=== PATIENT | male | born 1965 | race Hispanic/Latino ===

== ENCOUNTER 2017-04-04 21:22 | Emergency (ER) | payer SELFPAY ==
[~2017-04-04 21:22] MED LIST: PANT40TA25 PO; PROP10TA72 PO
[2017-04-04] MEDS ORDERED: ACETAMINOPHEN 325 MG TAB ONE (21:40)
[2017-04-04] MEDS ORDERED: DEXAMETHASONE SOD PHOSPHATE 10MG/ML 1ML VIAL ONE (22:11)
== END 2017-04-04 22:50 | disposition home or self-care (01) ==
LOC: EDH 21:22
DX: J10.1 Influenza due to other identified influenza virus with other respiratory manifestations (principal); E11.9 Type 2 diabetes mellitus without complications; E78.5 Hyperlipidemia, unspecified; I10 Essential (primary) hypertension
CPT/HCPCS: 71046; 87804 ×2; 96372; 99285; J1100

== ENCOUNTER 2017-08-26 14:55 | Inpatient (IN) | payer SELFPAY ==
[~2017-08-26] VITALS: Ht 172.7 cm; Wt 86.2 kg
[2017-08-26 15:18] LABS: APPEARANCE,URINE Clear (CLEAR); BILIRUBIN,URINE Negative (NEGATIVE); COLOR,URINE Yellow (YELLOW); GLUCOSE, URINE (UA) >=1000 mg/dL (NEGATIVE); KETONES,URINE 40 mg/dL (NEGATIVE); LEUKOCYTE ESTERASE ,URINE Small (NEGATIVE); NITRATE,URINE Negative (NEGATIVE); OCCULT BLOOD,URINE Negative (NEGATIVE); PH,URINE 7.5 (5.0-8.0); PROTEIN,URINE 300 (NEGATIVE)
[2017-08-26 15:22] LABS: BASOPHILS % (AUTO) 1.3 % (0.0-5.0); HEMATOCRIT 21.4 % (42-54); LYMPHOCYTES % (AUTO) 23.5 % (21.0-51.0); MEAN CORPUSCULAR HGB CONC 28.9 g/dL (32.0-36.0); MEAN CORPUSCULAR VOLUME 72.8 fL (79-99); MONOCYTES % (AUTO) 11.3 % (3.0-13.0); NEUTROPHILS % (AUTO) 62.9 % (40.0-77.0); NUCLEATED RED BLOOD CELLS 0.2 % (0.0-0.19); PLATELET COUNT (AUTO) 41 K/uL (130-400); RED BLOOD CELL COUNT(AUTO) 2.94 MIL/uL (4.50-6.20); WHITE BLOOD COUNT (AUTO) 2.6 K/uL (4.8-10.8)
[2017-08-26 15:28] LABS: BACTERIA,URINE Rare /HPF (None Seen); RBC,URINE None Seen /HPF (0-1); TRANSITIONAL EPI CELLS,URINE Few /HPF (None Seen)
[2017-08-26] MEDS ORDERED: ONDANSETRON HCL 4 MG/2 ML VIAL ONE ×3 (15:34→20:46)
[2017-08-26] MEDS ORDERED: MORPHINE SULFATE 4 MG/1ML SYG ONE ×2 (15:35→16:48)
[2017-08-26 15:36] LABS: CREATININE 0.6 mg/dL (0.5-1.5); POTASSIUM 3.2 mmol/L (3.5-5.1)
[2017-08-26 15:38] LABS: ALBUMIN 3.4 g/dL (3.5-5.0); TOTAL PROTEIN, SERUM 8.7 g/dL (6.0-8.3)
[2017-08-26 15:39] LABS: INR 1.13 (0.85-1.15); PARTIAL THROMBOPLASTIN TIME 23.8 SEC (26.3-35.5); PROTHROMBIN TIME 11.8 SEC (9.6-11.6)
[2017-08-26 15:53] LABS: BASOPHILS % (MANUAL) 4 % (0-2); LYMPHOCYTES % (MANUAL) 24 % (22-44); MONOCYTES % (MANUAL) 4 % (2-9); SEGMENTED NEUTROPHILS % 68 % (40-70)
[2017-08-26 15:54] LABS: PLATELET MORPHOLOGY COMMENT MARKED DECREASED
[2017-08-26] MEDS ORDERED: CEFTRIAXONE SODIUM 1 GM ONE (18:53)
[2017-08-26] MEDS ORDERED: SODIUM CHLORIDE 0.9% 50 ML IV ONE (18:53)
[2017-08-26] MEDS: SODIUM CHLORIDE 0.9% 1000ML 1,000 ML IV SCH (19:04)
[2017-08-26] MEDS ORDERED: HYDRALAZINE HCL 20 MG/ML VIAL IV PRN (19:15)
[2017-08-26] MEDS ORDERED: CEFTRIAXONE 1GM/D5W 50ML 50 ML IV SCH (19:15)
[2017-08-26] MEDS ORDERED: ACETAMINOPHEN 325 MG TAB PO PRN (19:15)
[2017-08-26] MEDS ORDERED: MORPHINE SULFATE 2 MG/ML 1ML SYG IV PRN (19:15)
[2017-08-26] MEDS ORDERED: POTASSIUM CHLORIDE 20 MEQ ERTAB PO PRN ×2 (19:30)
[2017-08-26] MEDS ORDERED: POTASSIUM CHLORIDE 10% ELIXIR 20 MEQ/15 ML UDCUP PO PRN ×2 (19:30)
[2017-08-26] MEDS ORDERED: DEXTROSE 50%-WATER 50 ML DISP.SYRIN IV PRN (19:30)
[2017-08-26] MEDS ORDERED: GLUCAGON 1MG KIT 1 MG ML IM PRN (19:30)
[2017-08-26] MEDS ORDERED: LIDOCAINE HCL-MPF 1% 2ML VIAL IVP PRN ×2 (19:30)
[2017-08-26] MEDS ORDERED: POTASSIUM CHLORIDE 20MEQ/100ML 100 ML IV PRN ×2 (19:30)
[2017-08-26] MEDS ORDERED: ONDANSETRON HCL MDV 20ML 2 MG/ML VIAL IVP PRN (20:15)
[2017-08-26] MEDS ORDERED: MORPHINE SULFATE 8 MG/ML VIAL ONE (20:47)
[2017-08-26] MEDS: FAMOTIDINE/PF 20 MG/2 ML VIAL IV SCH (21:00)
[2017-08-26] MEDS: INSULIN HUMULIN R 100 UNIT/ML 3ML SQ SCH (21:00)
[2017-08-26] MEDS ORDERED: SODIUM CHLORIDE 0.9% 1000ML 1,000 ML IV ONE (21:24)
[2017-08-27] MEDS ORDERED: POTASSIUM CHLORIDE 20 MEQ ERTAB PO ONE (04:40)
[2017-08-27] MEDS ORDERED: MORPHINE SULFATE 4 MG/1ML SYG ONE ×2 (05:00→07:53)
[2017-08-27 06:36] LABS: BASOPHILS % (AUTO) 1.2 % (0.0-5.0); EOSINOPHILS % (AUTO) 2.2 % (0.0-8.0); HEMATOCRIT 21.2 % (42-54); LYMPHOCYTES % (AUTO) 23.6 % (21.0-51.0); MEAN CORPUSCULAR HEMOGLOBIN 21.9 pg (27.0-33.0); MEAN CORPUSCULAR HGB CONC 29.9 g/dL (32.0-36.0); MEAN CORPUSCULAR VOLUME 73.5 fL (79-99); MONOCYTES % (AUTO) 13.9 % (3.0-13.0); NEUTROPHILS % (AUTO) 59.1 % (40.0-77.0); NUCLEATED RED BLOOD CELLS 0.2 % (0.0-0.19); PLATELET COUNT (AUTO) 29 K/uL (130-400); RED BLOOD CELL COUNT(AUTO) 2.88 MIL/uL (4.50-6.20); RED CELL DISTRIBUTION WIDTH 18.9 % (11.0-15.5); WHITE BLOOD COUNT (AUTO) 2.7 K/uL (4.8-10.8)
[2017-08-27 07:04] LABS: BILIRUBIN,TOTAL 1.5 mg/dL (0.2-1.0); POTASSIUM 3.9 mmol/L (3.5-5.1); TOTAL PROTEIN, SERUM 7.7 g/dL (6.0-8.3)
[2017-08-27] MEDS: INSULIN HUMULIN R 100 UNIT/ML 3ML SQ SCH ×4 (07:30→21:00)
[2017-08-27] MEDS ORDERED: ONDANSETRON HCL 4 MG/2 ML VIAL ONE (07:52)
[2017-08-27] MEDS: FAMOTIDINE/PF 20 MG/2 ML VIAL IV SCH ×2 (09:00→21:41)
[2017-08-27 09:03] LABS: CREATININE 0.5 mg/dL (0.5-1.5)
[2017-08-27 10:39] VITALS: BP 162/70
[2017-08-27] MEDS: MORPHINE SULFATE 4 MG/1ML SYG IV PRN ×4 (10:58→22:56)
[2017-08-27] MEDS ORDERED: SODIUM CHLORIDE 0.9% 250 ML IV ONE (13:29)
[2017-08-27] MEDS: SODIUM CHLORIDE 0.9% 1000ML 1,000 ML IV SCH (13:30)
[2017-08-27 16:32] VITALS: BP 133/80
[2017-08-27] MEDS: CEFTRIAXONE SODIUM 1 GM IVP SCH (17:24)
[2017-08-27 20:08] VITALS: BP 136/64
[2017-08-28] VITALS (16 sets, daily range): BP systolic 99–149; BP diastolic 59–85
[2017-08-28] MEDS: SODIUM CHLORIDE 0.9% 1000ML 1,000 ML IV SCH (01:24)
[2017-08-28] MEDS: MORPHINE SULFATE 4 MG/1ML SYG IV PRN ×4 (03:19→18:07)
[2017-08-28 04:26] LABS: MEAN CORPUSCULAR HEMOGLOBIN 23.2 pg (27.0-33.0); MEAN CORPUSCULAR HGB CONC 31.2 g/dL (32.0-36.0); MEAN CORPUSCULAR VOLUME 74.5 fL (79-99); NUCLEATED RED BLOOD CELLS 0.1 % (0.0-0.19); PLATELET COUNT (AUTO) 36 K/uL (130-400); RED BLOOD CELL COUNT(AUTO) 3.63 MIL/uL (4.50-6.20); RED CELL DISTRIBUTION WIDTH 19.3 % (11.0-15.5); WHITE BLOOD COUNT (AUTO) 3.6 K/uL (4.8-10.8)
[2017-08-28] MEDS: INSULIN HUMULIN R 100 UNIT/ML 3ML SQ SCH ×3 (06:18→16:30)
[2017-08-28] MEDS ORDERED: PROPOFOL 10 MG/ML 20ML VIAL IV ONE (08:01)
[2017-08-28] MEDS ORDERED: GLYCOPYRROLATE 0.2 MG/ML 5 ML VIAL ONE (08:01)
[2017-08-28] MEDS: FAMOTIDINE/PF 20 MG/2 ML VIAL IV SCH (09:17)
[2017-08-28] MEDS: HYDROMORPHONE 1 MG/1 ML AMP IVP PRN ×2 (10:12→15:53)
[2017-08-28] MEDS: CEFTRIAXONE SODIUM 1 GM IVP SCH (18:06)
== END 2017-08-28 19:35 | disposition home or self-care (01) | DRG 432 ==
LOC: EDH 14:55 → EDHIP 14:56 → 4BH 08-27 10:13
PROVIDERS: ADMIT Internal Medicine Nephrology; ATTEND Internal Medicine Nephrology
PROC: 30233N1 Transfusion of Nonautologous Red Blood Cells into Peripheral Vein, Percutaneous Approach (ICD-10-PCS; 2017-08-26)
PROC: 30233R1 Transfusion of Nonautologous Platelets into Peripheral Vein, Percutaneous Approach (ICD-10-PCS; principal; 2017-08-28)
PROC: 0DJ08ZZ Inspection of Upper Intestinal Tract, Via Natural or Artificial Opening Endoscopic (ICD-10-PCS; 2017-08-28)
DX: K70.31 Alcoholic cirrhosis of liver with ascites (principal); I85.11 Secondary esophageal varices with bleeding; D69.6 Thrombocytopenia, unspecified; K76.6 Portal hypertension; E11.9 Type 2 diabetes mellitus without complications; E78.5 Hyperlipidemia, unspecified; I10 Essential (primary) hypertension; D50.9 Iron deficiency anemia, unspecified; N39.0 Urinary tract infection, site not specified; K29.70 Gastritis, unspecified, without bleeding; K42.9 Umbilical hernia without obstruction or gangrene; Z87.11 Personal history of peptic ulcer disease; K31.89 Other diseases of stomach and duodenum
CPT/HCPCS: 36415; 74176; 76705; 80053; 81001; 82150; 82270; 82948; 83690; 85025; 85027; 85610; 85730; 86850; 86900; 86901; 86922; 87088; 87106; 87186; 93005; J0696; J1170; J1815; J2270; J2405; J2704; J3490; J7030; P9016; P9034

== ENCOUNTER 2018-03-31 21:43 | Inpatient (IN) | payer SELFPAY ==
[~2018-03-31] VITALS: Ht 170.2 cm; Wt 103.5 kg
[2018-03-31 22:32] LABS: BASOPHILS % (AUTO) 0.4 % (0.0-5.0); EOSINOPHILS % (AUTO) 1.7 % (0.0-8.0); HEMATOCRIT 26.5 % (42-54); LYMPHOCYTES % (AUTO) 9.9 % (21.0-51.0); MEAN CORPUSCULAR HEMOGLOBIN 29.4 pg (27.0-33.0); MEAN CORPUSCULAR HGB CONC 32.3 g/dL (32.0-36.0); MEAN CORPUSCULAR VOLUME 91.1 fL (79-99); MONOCYTES % (AUTO) 9.6 % (3.0-13.0); NEUTROPHILS % (AUTO) 78.4 % (40.0-77.0); PLATELET COUNT (AUTO) 106 K/uL (130-400); RED CELL DISTRIBUTION WIDTH 22.5 % (11.0-15.5); WHITE BLOOD COUNT (AUTO) 13.9 K/uL (4.8-10.8)
[2018-03-31 22:45] LABS: INR 1.97 (0.85-1.15); PARTIAL THROMBOPLASTIN TIME 47.4 SEC (26.3-35.5); PROTHROMBIN TIME 20.4 SEC (9.6-11.6)
[2018-03-31 22:47] LABS: CREATININE 3.3 mg/dL (0.5-1.5); POTASSIUM 3.6 mmol/L (3.5-5.1)
[2018-03-31 22:53] LABS: ALBUMIN 1.4 g/dL (3.5-5.0); BILIRUBIN,TOTAL 10.6 mg/dL (0.2-1.0); MAGNESIUM 2.1 mg/dL (1.80-2.40); TOTAL PROTEIN, SERUM 8.1 g/dL (6.0-8.3)
[2018-03-31 23:22] LABS: APPEARANCE,URINE Turbid (CLEAR); BILIRUBIN,URINE Large (NEGATIVE); GLUCOSE, URINE (UA) TRACE mg/dL (NEGATIVE); KETONES,URINE Trace mg/dL (NEGATIVE); LEUKOCYTE ESTERASE ,URINE Large (NEGATIVE); NITRATE,URINE Negative (NEGATIVE); OCCULT BLOOD,URINE Large (NEGATIVE); PROTEIN,URINE POS 1+ (NEGATIVE)
[2018-03-31 23:26] LABS: COLOR,URINE Dark Yellow (YELLOW)
[2018-03-31 23:30] LABS: AMPHET/METH SCREEN,URINE NEGATIVE (NEGATIVE); BARBITURATE SCREEN, URINE NEGATIVE (NEGATIVE); BENZODIAZEPINES SCREEN,URINE POSITIVE (NEGATIVE); CANNABINOID SCREEN,URINE POSITIVE (NEGATIVE); COCAINE SCREEN,URINE NEGATIVE (NEGATIVE); OPIATE SCREEN,URINE NEGATIVE (NEGATIVE); PHENCYCLIDINE SCREEN,URINE NEGATIVE (NEGATIVE)
[2018-03-31 23:31] LABS: BACTERIA,URINE Few /HPF (None Seen); MUCUS,URINE Rare LPF (None Seen); RBC,URINE 26-50 /HPF (0-1); SQUAMOUS EPITHELIAL CELL,UR Moderate /HPF (0-2); WBC,URINE 26-50 /HPF (0-1); YEAST,URINE BUDDING Rare /HPF (None Seen)
[2018-03-31 23:32] LABS: AMORPHOUS SEDIMENT,UR Moderate /LPF (None Seen)
[2018-03-31] MEDS ORDERED: ACETAMINOPHEN-CODEINE 300/30MG TAB ONE (23:36)
[2018-04-01] MEDS: LEVOFLOXACIN 500 MG/D5W 100 ML 100 ML IV SCH (01:15)
[2018-04-01] MEDS ORDERED: SODIUM CHLORIDE 0.9% 1000ML 1,000 ML IV SCH (01:15)
[2018-04-01 01:54] LABS: CREATININE,URINE RANDOM 240 mg/dL (30-135); SODIUM,URINE RANDOM 26 mmol/l (40-220)
[2018-04-01] MEDS ORDERED: LEVOFLOXACIN 500 MG/D5W 100 ML 100 ML ONE (02:47)
[2018-04-01] MEDS ORDERED: FUROSEMIDE 10 MG/ML 2ML VIAL ONE (02:47)
[2018-04-01] MEDS ORDERED: FUROSEMIDE 10 MG/ML 2ML VIAL IVP SCH (03:45)
[2018-04-01] MEDS ORDERED: ONDANSETRON HCL 4 MG/2 ML VIAL IV PRN (04:00)
[2018-04-01] MEDS ORDERED: MORPHINE SULFATE 2 MG/ML 1ML SYG IV PRN (04:00)
[2018-04-01] MEDS ORDERED: DEXTROSE 50%-WATER 50 ML DISP.SYRIN IV PRN (04:00)
[2018-04-01] MEDS ORDERED: GLUCAGON 1MG KIT 1 MG ML IM PRN (04:00)
[2018-04-01 05:28] LABS: POTASSIUM 3.6 mmol/L (3.5-5.1)
[2018-04-01 05:56] LABS: BASOPHILS % (AUTO) 0.6 % (0.0-5.0); EOSINOPHILS % (AUTO) 2.3 % (0.0-8.0); LYMPHOCYTES % (AUTO) 10.8 % (21.0-51.0); MEAN CORPUSCULAR HEMOGLOBIN 29.8 pg (27.0-33.0); MEAN CORPUSCULAR HGB CONC 32.5 g/dL (32.0-36.0); MEAN CORPUSCULAR VOLUME 91.5 fL (79-99); MONOCYTES % (AUTO) 11.2 % (3.0-13.0); NEUTROPHILS % (AUTO) 75.1 % (40.0-77.0); RED BLOOD CELL COUNT(AUTO) 2.48 MIL/uL (4.50-6.20); RED CELL DISTRIBUTION WIDTH 22.2 % (11.0-15.5); WHITE BLOOD COUNT (AUTO) 11.7 K/uL (4.8-10.8)
[2018-04-01] MEDS: INSULIN HUMULIN R 100 UNIT/ML 3ML SQ SCH ×5 (06:00→17:19)
[2018-04-01 06:02] LABS: HEMATOCRIT 22.7 % (42-54)
[2018-04-01 06:08] LABS: ALBUMIN 1.1 g/dL (3.5-5.0); BILIRUBIN,TOTAL 9.2 mg/dL (0.2-1.0); CREATININE 3.4 mg/dL (0.5-1.5); MAGNESIUM 2.1 mg/dL (1.80-2.40); TOTAL PROTEIN, SERUM 6.9 g/dL (6.0-8.3)
[2018-04-01 06:10] LABS: INR 2.14 (0.85-1.15); PARTIAL THROMBOPLASTIN TIME 54.3 SEC (26.3-35.5); PROTHROMBIN TIME 22.1 SEC (9.6-11.6)
[2018-04-01 06:11] LABS: HEMOGLOBIN A1C 8.3 % (4.0-6.0)
[2018-04-01 06:22] LABS: PLATELET COUNT (AUTO) 62 K/uL (130-400)
[2018-04-01] MEDS ORDERED: HYDR-4064 PO (07:53)
[2018-04-01 07:57] VITALS: BP 115/63
[2018-04-01] MEDS ORDERED: ACETAMINOPHEN EXTRA STRENGTH 500 MG TABLET PO PRN (08:00)
[2018-04-01] MEDS ORDERED: FAMOTIDINE/PF 20 MG/2 ML VIAL IV SCH (09:00)
[2018-04-01] MEDS ORDERED: M.V.I. IV [ADULT] 10 ML, FOLIC ACID 1 MG, THIAMINE HCL 100 MG in SODIUM CHLORIDE 0.9% 1... IV SCH (09:00)
[2018-04-01] MEDS: ONDANSETRON HCL 4 MG/2 ML VIAL IV PRN (09:35)
[2018-04-01] MEDS: MORPHINE SULFATE 4 MG/1ML SYG IV PRN ×4 (09:35→21:40)
[2018-04-01] MEDS ORDERED: SODIUM CHLORIDE 0.9% 500ML 500 ML IV ONE (09:47)
[2018-04-01 11:33] VITALS: BP 123/72
[2018-04-01] MEDS ORDERED: SPIR25TA6 PO (11:50)
[2018-04-01] MEDS ORDERED: METF-446 PO (11:50)
[2018-04-01] MEDS ORDERED: FURO40TA5 PO (11:50)
[2018-04-01] MEDS ORDERED: PANT40TA25 PO (11:50)
[2018-04-01] MEDS ORDERED: FURO20TA6 PO (11:50)
[2018-04-01] MEDS ORDERED: PRAV20TA4 PO (11:52)
[2018-04-01] MEDS ORDERED: AMOX1TAB16 PO (11:52)
[2018-04-01] MEDS: PANTOPRAZOLE SODIUM 40 MG TABLET.DR PO SCH (11:58)
[2018-04-01] MEDS ORDERED: EPOETIN ALFA 10,000 UNIT/ML VIAL SQ SCH (13:00)
[2018-04-01] MEDS ORDERED: COMPOUND IV MISC 1 EACH IVSOLN MISC PRN (13:15)
[2018-04-01 16:04] VITALS: BP 107/57
[2018-04-01] MEDS: PHYTONADIONE 10 MG/1 ML AMP IV SCH (17:09)
[2018-04-01 18:15] LABS: HEMATOCRIT 25.9 % (42-54)
[2018-04-01 19:00] VITALS: BP 107/54
[2018-04-01] MEDS: ZOSYN 3.375GM+NS 50ML 50 ML IV SCH (20:30)
[2018-04-01] MEDS: SODIUM BICARBONATE 650 MG TAB PO SCH (20:33)
[2018-04-01 23:00] VITALS: BP 121/69
[2018-04-02] VITALS (15 sets, daily range): BP systolic 105–129; BP diastolic 47–80
[2018-04-02 00:54] LABS: HEMATOCRIT 25.6 % (42-54)
[2018-04-02] MEDS: LEVOFLOXACIN 500 MG/D5W 100 ML 100 ML IV SCH (01:43)
[2018-04-02] MEDS: MORPHINE SULFATE 4 MG/1ML SYG IV PRN ×4 (01:43→21:06)
[2018-04-02 04:30] LABS: BASOPHILS % (AUTO) 0.5 % (0.0-5.0); EOSINOPHILS % (AUTO) 2.1 % (0.0-8.0); HEMATOCRIT 24.7 % (42-54); LYMPHOCYTES % (AUTO) 6.5 % (21.0-51.0); MEAN CORPUSCULAR HEMOGLOBIN 29.8 pg (27.0-33.0); MEAN CORPUSCULAR HGB CONC 33.1 g/dL (32.0-36.0); NEUTROPHILS % (AUTO) 79.9 % (40.0-77.0); PLATELET COUNT (AUTO) 55 K/uL (130-400); RED BLOOD CELL COUNT(AUTO) 2.75 MIL/uL (4.50-6.20); RED CELL DISTRIBUTION WIDTH 21.7 % (11.0-15.5); WHITE BLOOD COUNT (AUTO) 11.1 K/uL (4.8-10.8)
[2018-04-02 04:37] LABS: POTASSIUM 3.7 mmol/L (3.5-5.1)
[2018-04-02] MEDS: INSULIN HUMULIN R 100 UNIT/ML 3ML SQ SCH ×4 (06:00→16:56)
[2018-04-02 07:05] LABS: HEMATOCRIT 36.3 % (42-54)
[2018-04-02] MEDS: ZOSYN 3.375GM+NS 50ML 50 ML IV SCH ×2 (10:10→21:07)
[2018-04-02] MEDS: PHYTONADIONE 10 MG/1 ML AMP IV SCH (10:10)
[2018-04-02] MEDS ORDERED: SODIUM CHLORIDE 0.9% 250 ML IV ONE (12:20)
[2018-04-02 12:39] LABS: HEMATOCRIT 24.2 % (42-54)
[2018-04-02] MEDS ORDERED: PROPOFOL 10 MG/ML 20ML VIAL IV ONE (14:03)
[2018-04-02] MEDS: ONDANSETRON HCL 4 MG/2 ML VIAL IV PRN (14:45)
[2018-04-02] MEDS: IRON SUCROSE COMPLEX 100 MG in SODIUM CHLORIDE 0.9% 50 ML IV SCH (14:49)
[2018-04-02] MEDS: SODIUM BICARBONATE 650 MG TAB PO SCH ×2 (15:43→21:06)
[2018-04-02] MEDS: PANTOPRAZOLE SODIUM 40 MG TABLET.DR PO SCH (15:43)
[2018-04-02 18:08] LABS: HEMATOCRIT 23.5 % (42-54)
[2018-04-02] MEDS ORDERED: MORPHINE SULFATE 4 MG/1ML SYG IV PRN (20:44)
[2018-04-03] MEDS: LEVOFLOXACIN 500 MG/D5W 100 ML 100 ML IV SCH (02:02)
[2018-04-03 03:00] VITALS: BP 129/73
[2018-04-03 04:15] LABS: HEMATOCRIT 23.4 % (42-54); MEAN CORPUSCULAR HEMOGLOBIN 28.7 pg (27.0-33.0); MEAN CORPUSCULAR HGB CONC 31.8 g/dL (32.0-36.0); MEAN CORPUSCULAR VOLUME 90.1 fL (79-99); PLATELET COUNT (AUTO) 44 K/uL (130-400); RED CELL DISTRIBUTION WIDTH 21.7 % (11.0-15.5); WHITE BLOOD COUNT (AUTO) 11.8 K/uL (4.8-10.8)
[2018-04-03 04:18] LABS: CREATININE 2.9 mg/dL (0.5-1.5); POTASSIUM 3.9 mmol/L (3.5-5.1)
[2018-04-03] MEDS: INSULIN HUMULIN R 100 UNIT/ML 3ML SQ SCH ×5 (06:00→21:00)
[2018-04-03 07:15] VITALS: BP 123/67
[2018-04-03] MEDS: PHYTONADIONE 10 MG/1 ML AMP IV SCH (07:47)
[2018-04-03] MEDS: SODIUM BICARBONATE 650 MG TAB PO SCH ×2 (07:57→19:59)
[2018-04-03] MEDS: PANTOPRAZOLE SODIUM 40 MG TABLET.DR PO SCH (07:58)
[2018-04-03] MEDS: ZOSYN 3.375GM+NS 50ML 50 ML IV SCH ×2 (07:58→19:59)
[2018-04-03] MEDS: MORPHINE SULFATE 4 MG/1ML SYG IV PRN ×4 (08:03→20:33)
[2018-04-03] MEDS: IRON SUCROSE COMPLEX 100 MG in SODIUM CHLORIDE 0.9% 50 ML IV SCH (09:00)
[2018-04-03 11:08] VITALS: BP 126/65
[2018-04-03 15:56] VITALS: BP 134/73
[2018-04-03 19:46] VITALS: BP 133/70
[2018-04-03 23:39] VITALS: BP 142/70
[2018-04-04] MEDS: LEVOFLOXACIN 500 MG/D5W 100 ML 100 ML IV SCH (00:32)
[2018-04-04] MEDS: MORPHINE SULFATE 4 MG/1ML SYG IV PRN ×4 (00:32→13:52)
[2018-04-04 03:51] VITALS: BP 123/62
[2018-04-04 04:09] LABS: BASOPHILS % (AUTO) 0.4 % (0.0-5.0); EOSINOPHILS % (AUTO) 0.8 % (0.0-8.0); HEMATOCRIT 22.8 % (42-54); LYMPHOCYTES % (AUTO) 6.4 % (21.0-51.0); MEAN CORPUSCULAR HEMOGLOBIN 30.3 pg (27.0-33.0); MEAN CORPUSCULAR HGB CONC 33.5 g/dL (32.0-36.0); MEAN CORPUSCULAR VOLUME 90.3 fL (79-99); MONOCYTES % (AUTO) 8.8 % (3.0-13.0); NEUTROPHILS % (AUTO) 83.6 % (40.0-77.0); NUCLEATED RED BLOOD CELLS 0.1 % (0.0-0.19); PLATELET COUNT (AUTO) 50 K/uL (130-400); RED BLOOD CELL COUNT(AUTO) 2.53 MIL/uL (4.50-6.20); RED CELL DISTRIBUTION WIDTH 21.9 % (11.0-15.5); WHITE BLOOD COUNT (AUTO) 16.6 K/uL (4.8-10.8)
[2018-04-04 04:27] LABS: CREATININE 2.7 mg/dL (0.5-1.5); POTASSIUM 3.8 mmol/L (3.5-5.1)
[2018-04-04] MEDS: INSULIN HUMULIN R 100 UNIT/ML 3ML SQ SCH ×4 (06:10→20:44)
[2018-04-04] MEDS: PHYTONADIONE 10 MG/1 ML AMP IV SCH (07:01)
[2018-04-04] MEDS: PANTOPRAZOLE SODIUM 40 MG TABLET.DR PO SCH (07:13)
[2018-04-04] MEDS: SODIUM BICARBONATE 650 MG TAB PO SCH ×2 (07:13→20:28)
[2018-04-04] MEDS: IRON SUCROSE COMPLEX 100 MG in SODIUM CHLORIDE 0.9% 50 ML IV SCH (07:14)
[2018-04-04] MEDS: ZOSYN 3.375GM+NS 50ML 50 ML IV SCH ×2 (07:14→20:28)
[2018-04-04 07:42] VITALS: BP 131/66
[2018-04-04] MEDS ORDERED: EPOETIN ALFA 10,000 UNIT/ML VIAL SQ SCH (11:15)
[2018-04-04 12:00] VITALS: BP 119/68
[2018-04-04] MEDS: ALBUMIN (HUMAN) 25% 50 ML IV SCH ×2 (13:15→22:16)
[2018-04-04 16:00] VITALS: BP 140/81
[2018-04-04 19:33] VITALS: BP 135/78
[2018-04-04] MEDS ORDERED: SODIUM CHLORIDE 0.9% 50 ML IV ONE (19:58)
[2018-04-04] MEDS: DOXYCYCLINE HYCLATE 100 MG TABLET PO SCH (20:28)
[2018-04-04 23:40] VITALS: BP 133/70
[2018-04-05 03:58] VITALS: BP 128/56
[2018-04-05 04:16] LABS: HEMATOCRIT 22.6 % (42-54); MEAN CORPUSCULAR VOLUME 90.6 fL (79-99); NUCLEATED RED BLOOD CELLS 0.1 % (0.0-0.19); PLATELET COUNT (AUTO) 39 K/uL (130-400); RED CELL DISTRIBUTION WIDTH 21.9 % (11.0-15.5); WHITE BLOOD COUNT (AUTO) 17.9 K/uL (4.8-10.8)
[2018-04-05 04:50] LABS: ALBUMIN 1.6 g/dL (3.5-5.0); BILIRUBIN,TOTAL 12.2 mg/dL (0.2-1.0); POTASSIUM 3.8 mmol/L (3.5-5.1); TOTAL PROTEIN, SERUM 7.9 g/dL (6.0-8.3)
[2018-04-05] MEDS: ALBUMIN (HUMAN) 25% 50 ML IV SCH ×3 (04:52→21:09)
[2018-04-05] MEDS: MORPHINE SULFATE 4 MG/1ML SYG IV PRN ×5 (04:56→21:10)
[2018-04-05] MEDS: INSULIN HUMULIN R 100 UNIT/ML 3ML SQ SCH ×4 (05:25→20:24)
[2018-04-05 07:00] VITALS: BP 136/72
[2018-04-05] MEDS: PHYTONADIONE 10 MG/1 ML AMP IV SCH (09:15)
[2018-04-05] MEDS: THIAMINE HCL 100 MG TABLET PO SCH (09:25)
[2018-04-05] MEDS: SODIUM BICARBONATE 650 MG TAB PO SCH ×2 (09:25→20:23)
[2018-04-05] MEDS: MULTIVITAMIN TABLET PO SCH (09:25)
[2018-04-05] MEDS: SPIRONOLACTONE 25 MG TAB PO SCH (09:25)
[2018-04-05] MEDS: DOXYCYCLINE HYCLATE 100 MG TABLET PO SCH ×2 (09:25→20:23)
[2018-04-05] MEDS: PANTOPRAZOLE SODIUM 40 MG TABLET.DR PO SCH (09:25)
[2018-04-05] MEDS: FOLIC ACID 1 MG TABLET PO SCH (09:25)
[2018-04-05] MEDS: ZOSYN 3.375GM+NS 50ML 50 ML IV SCH (09:26)
[2018-04-05] MEDS: IRON SUCROSE COMPLEX 100 MG in SODIUM CHLORIDE 0.9% 50 ML IV SCH (09:30)
[2018-04-05] MEDS: FUROSEMIDE 10 MG/ML 4ML VIAL IV SCH (09:30)
[2018-04-05 11:00] VITALS: BP 134/73
[2018-04-05] MEDS ORDERED: MEROPENEM 500 MG VIAL IVP SCH (13:15)
[2018-04-05] MEDS ORDERED: RENAL DOSE IV SCH (13:15)
[2018-04-05] MEDS: EPOETIN ALFA 10,000 UNIT/ML VIAL SQ SCH (15:04)
[2018-04-05 16:00] VITALS: BP 140/69
[2018-04-05 19:50] VITALS: BP 133/76
[2018-04-05] MEDS: MEROPENEM 500 MG VIAL IVP SCH (20:23)
[2018-04-05 23:29] VITALS: BP 130/69
[2018-04-06] MEDS: HYDROCODONE/ACETAMINOPHEN 5/325 MG TAB PO PRN ×4 (01:44→21:06)
[2018-04-06 04:00] VITALS: BP 120/71
[2018-04-06 04:12] LABS: MEAN CORPUSCULAR HEMOGLOBIN 30.6 pg (27.0-33.0); MEAN CORPUSCULAR HGB CONC 33.4 g/dL (32.0-36.0); MEAN CORPUSCULAR VOLUME 91.6 fL (79-99); PLATELET COUNT (AUTO) 39 K/uL (130-400); RED CELL DISTRIBUTION WIDTH 21.8 % (11.0-15.5)
[2018-04-06 04:17] LABS: POTASSIUM 3.7 mmol/L (3.5-5.1)
[2018-04-06 04:20] LABS: ALBUMIN 1.6 g/dL (3.5-5.0); PHOSPHORUS 4.7 mg/dL (2.5-4.9)
[2018-04-06 04:21] LABS: PARTIAL THROMBOPLASTIN TIME 72.1 SEC (26.3-35.5)
[2018-04-06 04:36] LABS: PROTHROMBIN TIME > 63.0 SEC (9.6-11.6)
[2018-04-06 04:37] LABS: INR > 7.00 (0.85-1.15)
[2018-04-06] MEDS ORDERED: PHYTONADIONE 10 MG/1 ML AMP IV SCH (05:00)
[2018-04-06] MEDS: ALBUMIN (HUMAN) 25% 50 ML IV SCH ×3 (05:18→19:13)
[2018-04-06] MEDS: MORPHINE SULFATE 4 MG/1ML SYG IV PRN ×4 (05:19→23:55)
[2018-04-06] MEDS: INSULIN HUMULIN R 100 UNIT/ML 3ML SQ SCH ×4 (06:26→20:43)
[2018-04-06] MEDS ORDERED: PHYTONADIONE 10 MG in SODIUM CHLORIDE 0.9% 50 ML SQ SCH (06:45)
[2018-04-06 07:00] VITALS: BP 123/77
[2018-04-06] MEDS: SODIUM BICARBONATE 650 MG TAB PO SCH ×2 (08:15→21:04)
[2018-04-06] MEDS: SPIRONOLACTONE 25 MG TAB PO SCH (08:16)
[2018-04-06] MEDS: PANTOPRAZOLE SODIUM 40 MG TABLET.DR PO SCH (08:16)
[2018-04-06] MEDS: THIAMINE HCL 100 MG TABLET PO SCH (08:16)
[2018-04-06] MEDS: FOLIC ACID 1 MG TABLET PO SCH (08:16)
[2018-04-06] MEDS: DOXYCYCLINE HYCLATE 100 MG TABLET PO SCH ×2 (08:16→21:04)
[2018-04-06] MEDS: MULTIVITAMIN TABLET PO SCH (08:16)
[2018-04-06] MEDS: FUROSEMIDE 10 MG/ML 4ML VIAL IV SCH (08:22)
[2018-04-06] MEDS: MEROPENEM 500 MG VIAL IVP SCH ×2 (08:23→21:06)
[2018-04-06] MEDS: IRON SUCROSE COMPLEX 100 MG in SODIUM CHLORIDE 0.9% 50 ML IV SCH (08:23)
[2018-04-06 11:00] VITALS: BP 123/63
[2018-04-06 16:00] VITALS: BP 115/56
[2018-04-06 19:22] VITALS: BP 102/57
[2018-04-06 23:32] VITALS: BP 114/60
[2018-04-07] MEDS: HYDROCODONE/ACETAMINOPHEN 5/325 MG TAB PO PRN ×4 (03:08→23:22)
[2018-04-07 03:57] VITALS: BP 118/65
[2018-04-07] MEDS: MORPHINE SULFATE 4 MG/1ML SYG IV PRN ×3 (06:02→20:57)
[2018-04-07] MEDS: INSULIN HUMULIN R 100 UNIT/ML 3ML SQ SCH ×4 (06:02→20:23)
[2018-04-07 07:39] VITALS: BP 114/59
[2018-04-07] MEDS: PANTOPRAZOLE SODIUM 40 MG TABLET.DR PO SCH (08:51)
[2018-04-07] MEDS: SPIRONOLACTONE 25 MG TAB PO SCH (08:51)
[2018-04-07] MEDS: SODIUM BICARBONATE 650 MG TAB PO SCH ×2 (08:52→20:55)
[2018-04-07] MEDS: FUROSEMIDE 10 MG/ML 4ML VIAL IV SCH (08:52)
[2018-04-07] MEDS: DOXYCYCLINE HYCLATE 100 MG TABLET PO SCH ×2 (08:52→20:55)
[2018-04-07] MEDS: THIAMINE HCL 100 MG TABLET PO SCH (08:52)
[2018-04-07] MEDS: MEROPENEM 500 MG VIAL IVP SCH ×2 (08:52→20:55)
[2018-04-07] MEDS: MULTIVITAMIN TABLET PO SCH (08:52)
[2018-04-07] MEDS: FOLIC ACID 1 MG TABLET PO SCH (08:52)
[2018-04-07 11:26] VITALS: BP 101/65
[2018-04-07] MEDS: IRON SUCROSE COMPLEX 100 MG in SODIUM CHLORIDE 0.9% 50 ML IV SCH (11:59)
[2018-04-07 16:04] VITALS: BP 114/65
[2018-04-07] MEDS: EPOETIN ALFA 10,000 UNIT/ML VIAL SQ SCH (18:39)
[2018-04-07 19:41] VITALS: BP 114/62
[2018-04-07 23:41] VITALS: BP 102/50
[2018-04-08] MEDS: MORPHINE SULFATE 4 MG/1ML SYG IV PRN (03:36)
[2018-04-08 04:06] VITALS: BP 111/52
[2018-04-08 04:24] LABS: HEMATOCRIT 21.4 % (42-54); MEAN CORPUSCULAR HEMOGLOBIN 30.1 pg (27.0-33.0); MEAN CORPUSCULAR HGB CONC 32.3 g/dL (32.0-36.0); MEAN CORPUSCULAR VOLUME 93.1 fL (79-99); PLATELET COUNT (AUTO) 46 K/uL (130-400); RED CELL DISTRIBUTION WIDTH 22.1 % (11.0-15.5); WHITE BLOOD COUNT (AUTO) 26.2 K/uL (4.8-10.8)
[2018-04-08 04:26] LABS: PHOSPHORUS 6.6 mg/dL (2.5-4.9); POTASSIUM 4.1 mmol/L (3.5-5.1)
[2018-04-08] MEDS: INSULIN HUMULIN R 100 UNIT/ML 3ML SQ SCH ×4 (05:44→21:00)
[2018-04-08 06:24] LABS: BAND NEUTROPHILS % (MANUAL) 11 % (0-2); LYMPHOCYTES % (MANUAL) 5 % (22-44); MAN.DIFF COMMENT-IMPRESSION MANUAL DIFFERENTIAL; MONOCYTES % (MANUAL) 6 % (2-9); SEGMENTED NEUTROPHILS % 78 % (40-70)
[2018-04-08 06:25] LABS: PLATELET MORPHOLOGY COMMENT DECREASED
[2018-04-08 07:48] VITALS: BP 120/48
[2018-04-08] MEDS: DOXYCYCLINE HYCLATE 100 MG TABLET PO SCH ×2 (08:17→21:21)
[2018-04-08] MEDS: MEROPENEM 500 MG VIAL IVP SCH ×2 (08:17→21:21)
[2018-04-08] MEDS: MULTIVITAMIN TABLET PO SCH (08:17)
[2018-04-08] MEDS: THIAMINE HCL 100 MG TABLET PO SCH (08:17)
[2018-04-08] MEDS: SODIUM BICARBONATE 650 MG TAB PO SCH ×2 (08:17→21:21)
[2018-04-08] MEDS: FUROSEMIDE 10 MG/ML 4ML VIAL IV SCH (08:17)
[2018-04-08] MEDS: PANTOPRAZOLE SODIUM 40 MG TABLET.DR PO SCH (08:17)
[2018-04-08] MEDS: FOLIC ACID 1 MG TABLET PO SCH (08:17)
[2018-04-08] MEDS: SPIRONOLACTONE 25 MG TAB PO SCH (08:17)
[2018-04-08] MEDS: HYDROCODONE/ACETAMINOPHEN 5/325 MG TAB PO PRN ×3 (08:23→23:55)
[2018-04-08 11:03] VITALS: BP 107/55
[2018-04-08 14:50] VITALS: BP 108/59
[2018-04-08 17:42] VITALS: BP 108/55
[2018-04-08 20:00] VITALS: BP 101/51
[2018-04-09] VITALS: BP 117/51
[2018-04-09 04:00] VITALS: BP 92/52
[2018-04-09] MEDS: INSULIN HUMULIN R 100 UNIT/ML 3ML SQ SCH ×4 (06:50→20:33)
[2018-04-09 07:00] VITALS: BP 90/44
[2018-04-09] MEDS: FUROSEMIDE 10 MG/ML 4ML VIAL IV SCH (09:00)
[2018-04-09] MEDS: SPIRONOLACTONE 25 MG TAB PO SCH (09:00)
[2018-04-09] MEDS ORDERED: MIDODRINE HCL 5 MG TABLET PO SCH (09:00)
[2018-04-09] MEDS: SODIUM BICARBONATE 650 MG TAB PO SCH ×2 (09:03→20:32)
[2018-04-09] MEDS: THIAMINE HCL 100 MG TABLET PO SCH (09:04)
[2018-04-09] MEDS: FOLIC ACID 1 MG TABLET PO SCH (09:04)
[2018-04-09] MEDS: MULTIVITAMIN TABLET PO SCH (09:04)
[2018-04-09] MEDS: MEROPENEM 500 MG VIAL IVP SCH ×2 (09:05→20:32)
[2018-04-09] MEDS: DOXYCYCLINE HYCLATE 100 MG TABLET PO SCH ×2 (09:05→20:32)
[2018-04-09] MEDS: PANTOPRAZOLE SODIUM 40 MG TABLET.DR PO SCH (09:05)
[2018-04-09 11:00] VITALS: BP 108/55
[2018-04-09 16:18] VITALS: BP 96/54
[2018-04-09] MEDS: HYDROCODONE/ACETAMINOPHEN 5/325 MG TAB PO PRN (17:15)
[2018-04-09 20:00] VITALS: BP 106/53
[2018-04-10] VITALS (7 sets, daily range): BP systolic 94–111; BP diastolic 43–57
[2018-04-10] MEDS: HYDROCODONE/ACETAMINOPHEN 5/325 MG TAB PO PRN ×3 (04:51→19:33)
[2018-04-10] MEDS: INSULIN HUMULIN R 100 UNIT/ML 3ML SQ SCH ×2 (06:31→11:30)
[2018-04-10] MEDS: FUROSEMIDE 10 MG/ML 4ML VIAL IV SCH (09:00)
[2018-04-10] MEDS: PANTOPRAZOLE SODIUM 40 MG TABLET.DR PO SCH (09:14)
[2018-04-10] MEDS: MULTIVITAMIN TABLET PO SCH (09:14)
[2018-04-10] MEDS: SODIUM BICARBONATE 650 MG TAB PO SCH ×2 (09:14→19:33)
[2018-04-10] MEDS: MEROPENEM 500 MG VIAL IVP SCH ×2 (09:14→19:33)
[2018-04-10] MEDS: THIAMINE HCL 100 MG TABLET PO SCH (09:15)
[2018-04-10] MEDS: DOXYCYCLINE HYCLATE 100 MG TABLET PO SCH ×2 (09:15→19:33)
[2018-04-10] MEDS: FOLIC ACID 1 MG TABLET PO SCH (09:15)
[2018-04-10] MEDS: SPIRONOLACTONE 25 MG TAB PO SCH (09:15)
[2018-04-10] MEDS ORDERED: FLUCONAZOLE 100 MG TAB PO SCH (10:00)
[2018-04-10] MEDS: EPOETIN ALFA 10,000 UNIT/ML VIAL SQ SCH (15:00)
[2018-04-10] MEDS ORDERED: ALPRAZOLAM 0.25 MG TABLET PO PRN (15:30)
[2018-04-11 03:00] VITALS: BP 80/37
[2018-04-11 04:47] LABS: MEAN CORPUSCULAR HEMOGLOBIN 30.8 pg (27.0-33.0); MEAN CORPUSCULAR HGB CONC 32.5 g/dL (32.0-36.0); MEAN CORPUSCULAR VOLUME 94.8 fL (79-99); NUCLEATED RED BLOOD CELLS 0.1 % (0.0-0.19); PLATELET COUNT (AUTO) 44 K/uL (130-400); RED BLOOD CELL COUNT(AUTO) 2.09 MIL/uL (4.50-6.20); RED CELL DISTRIBUTION WIDTH 22.2 % (11.0-15.5); WHITE BLOOD COUNT (AUTO) 17.6 K/uL (4.8-10.8)
[2018-04-11 05:05] LABS: CREATININE 7.6 mg/dL (0.5-1.5); PHOSPHORUS 8.4 mg/dL (2.5-4.9); POTASSIUM 5.7 mmol/L (3.5-5.1)
[2018-04-11 05:15] LABS: HEMATOCRIT 19.8 % (42-54)
[2018-04-11 05:23] LABS: BAND NEUTROPHILS % (MANUAL) 6 % (0-2); LYMPHOCYTES % (MANUAL) 11 % (22-44); MAN.DIFF COMMENT-IMPRESSION MANUAL DIFFERENTIAL; MONOCYTES % (MANUAL) 2 % (2-9); SEGMENTED NEUTROPHILS % 81 % (40-70)
[2018-04-11 05:24] LABS: PLATELET MORPHOLOGY COMMENT DECREASED
[2018-04-11] MEDS ORDERED: SODIUM CHLORIDE 0.9% 500ML 500 ML IV SCH (05:45)
[2018-04-11 08:26] VITALS: BP 91/45
[2018-04-11] MEDS: SPIRONOLACTONE 25 MG TAB PO SCH (09:00)
[2018-04-11] MEDS: FUROSEMIDE 10 MG/ML 4ML VIAL IV SCH (09:00)
[2018-04-11] MEDS: MEROPENEM 500 MG VIAL IVP SCH ×2 (10:01→19:32)
[2018-04-11] MEDS: FOLIC ACID 1 MG TABLET PO SCH (10:07)
[2018-04-11] MEDS: SODIUM BICARBONATE 650 MG TAB PO SCH ×2 (10:08→19:36)
[2018-04-11] MEDS: PANTOPRAZOLE SODIUM 40 MG TABLET.DR PO SCH (10:08)
[2018-04-11] MEDS: THIAMINE HCL 100 MG TABLET PO SCH (10:08)
[2018-04-11] MEDS: DOXYCYCLINE HYCLATE 100 MG TABLET PO SCH ×2 (10:08→19:34)
[2018-04-11] MEDS: MULTIVITAMIN TABLET PO SCH (10:08)
[2018-04-11] MEDS: FLUCONAZOLE 100 MG TAB PO SCH (10:08)
[2018-04-11 12:02] VITALS: BP 92/45
[2018-04-11] MEDS: HYDROCODONE/ACETAMINOPHEN 5/325 MG TAB PO PRN ×2 (13:12→19:34)
[2018-04-11] MEDS: MIDODRINE HCL 5 MG TABLET PO SCH ×2 (13:13→19:33)
[2018-04-11 16:47] VITALS: BP 90/45
[2018-04-11 19:00] VITALS: BP 89/46
[2018-04-11 23:00] VITALS: BP 99/39
[2018-04-12] MEDS: HYDROCODONE/ACETAMINOPHEN 5/325 MG TAB PO PRN (02:23)
[2018-04-12 03:00] VITALS: BP 79/38
[2018-04-12] MEDS ORDERED: MORPHINE SULFATE 2 MG/ML 1ML SYG IVP PRN (04:30)
[2018-04-12] MEDS: MEROPENEM 500 MG VIAL IVP SCH (09:00)
[2018-04-12] MEDS: PANTOPRAZOLE SODIUM 40 MG TABLET.DR PO SCH (09:00)
[2018-04-12] MEDS: FLUCONAZOLE 100 MG TAB PO SCH (09:00)
[2018-04-12] MEDS: THIAMINE HCL 100 MG TABLET PO SCH (09:00)
[2018-04-12] MEDS: DOXYCYCLINE HYCLATE 100 MG TABLET PO SCH (09:00)
[2018-04-12] MEDS: FUROSEMIDE 10 MG/ML 4ML VIAL IV SCH (09:00)
[2018-04-12] MEDS: SPIRONOLACTONE 25 MG TAB PO SCH (09:00)
[2018-04-12] MEDS: MULTIVITAMIN TABLET PO SCH (09:00)
[2018-04-12] MEDS: SODIUM BICARBONATE 650 MG TAB PO SCH ×2 (09:00→20:04)
[2018-04-12] MEDS: FOLIC ACID 1 MG TABLET PO SCH (09:00)
[2018-04-12] MEDS: MIDODRINE HCL 5 MG TABLET PO SCH ×3 (09:00→20:04)
[2018-04-12] MEDS ORDERED: MORPHINE SULFATE 4 MG/1ML SYG ONE (12:11)
[2018-04-12] MEDS ORDERED: MORPHINE SULFATE 4 MG/1ML SYG IVP PRN ×2 (14:15→17:45)
[2018-04-12] MEDS ORDERED: LORAZEPAM 2 MG/ML 1 ML VIAL IVP PRN (17:45)
== END 2018-04-13 01:20 | disposition expired | DRG 871 ==
LOC: EDH 21:43 → EDHIP 21:44 → 2BH 04-01 07:26 → 2DH 04-01 17:33 → 3CH 04-08 14:44
PROVIDERS: ADMIT Hospitalist; ATTEND Hospitalist
PROC: 30233K1 Transfusion of Nonautologous Frozen Plasma into Peripheral Vein, Percutaneous Approach (ICD-10-PCS; principal; 2018-04-02)
PROC: 06L38CZ Occlusion of Esophageal Vein with Extraluminal Device, Via Natural or Artificial Opening Endoscopic (ICD-10-PCS; 2018-04-02)
DX: A41.51 Sepsis due to Escherichia coli [E. coli] (principal); E43 Unspecified severe protein-calorie malnutrition; I85.11 Secondary esophageal varices with bleeding; D68.59 Other primary thrombophilia; N17.9 Acute kidney failure, unspecified; E87.2 Acidosis; K76.6 Portal hypertension; N39.0 Urinary tract infection, site not specified; D62 Acute posthemorrhagic anemia; R65.20 Severe sepsis without septic shock; F10.129 Alcohol abuse with intoxication, unspecified; K70.31 Alcoholic cirrhosis of liver with ascites; E87.70 Fluid overload, unspecified; D50.9 Iron deficiency anemia, unspecified; Z66 Do not resuscitate; D69.6 Thrombocytopenia, unspecified; E11.22 Type 2 diabetes mellitus with diabetic chronic kidney disease; Z68.35 Body mass index [BMI] 35.0-35.9, adult; E78.5 Hyperlipidemia, unspecified; G89.29 Other chronic pain; R16.2 Hepatomegaly with splenomegaly, not elsewhere classified; R53.81 Other malaise; I12.9 Hypertensive chronic kidney disease with stage 1 through stage 4 chronic kidney disease, or unspecified chronic kidney disease; K27.9 Peptic ulcer, site unspecified, unspecified as acute or chronic, without hemorrhage or perforation; K29.80 Duodenitis without bleeding; K43.9 Ventral hernia without obstruction or gangrene; K72.90 Hepatic failure, unspecified without coma; K81.9 Cholecystitis, unspecified; K82.8 Other specified diseases of gallbladder; K31.89 Other diseases of stomach and duodenum; F19.10 Other psychoactive substance abuse, uncomplicated; N18.9 Chronic kidney disease, unspecified; R62.7 Adult failure to thrive; Y90.0 Blood alcohol level of less than 20 mg/100 ml; Z91.19 Patient's noncompliance with other medical treatment and regimen; Z87.11 Personal history of peptic ulcer disease; Z83.3 Family history of diabetes mellitus
CPT/HCPCS: 36415; 43244; 71045; 74150; 80048; 80053; 80305; 81001; 82040; 82140; 82570; 82948; 83036; 83605; 83735; 83880; 83935; 84100; 84300; 85014; 85018; 85025; 85027; 85610; 85730; 86156; 86677; 86850; 86870; 86900; 86901; 86922; 86927; 87040; 87077; 87088; 87186; 93005; 97039; A4218; G0378; G0480; J0885; J1756; J1815; J1940; J1956; J2185; J2270; J2405; J2543; J2704; J3411; J3430; J3490; J7030; J7040; P9016; P9017; P9047